=== PATIENT | female | born 1945 | race African-American/Black ===

== ENCOUNTER 2021-05-07 16:28 | Inpatient (IN) | payer MEDICARE, BC ==
[~2021-05-07 16:28] MED LIST: Iopamidol-370 76% 500 ML 1 ML ONE
[2021-05-07 17:47] LABS: #Eosinphils 0.2 thou/uL (0.0-0.7); #Lymphocytes 1.9 thou/uL (1.20-3.40); #Monocytes 0.5 thou/uL (0.11-0.59); #Neutrophils 6.7 thou/uL (1.40-6.50); %Eosinophils 2.4 % (0.0-10.0); %Lymphocytes 20.5 % (21.0-51.0); %Monocytes 5.1 % (0.0-10.0); Hemoglobin 13.8 g/dL (12.0-16.0); Mean Corpuscular HGB CONC 31.3 g/dL (32.0-36.0); Mean Corpuscular Hemoglobin 25.6 pg (27.0-31.0); Mean Corpuscular Volume 81.6 fL (78.0-98.0); Mean Platelet Volume 7.9 fL (7.4-10.4); Platelet Count 241 thou/uL (130-400); RBC Distribution Width 13.3 % (11.5-14.5); Red Blood Cell (RBC) Count 5.39 mill/uL (4.20-5.40); White Blood Cell (WBC) Count 9.3 thou/uL (4.8-10.8)
[2021-05-07] MEDS ORDERED: Labetalol HCl 100 MG/20 ML VIAL ONE (18:03)
[2021-05-07 18:06] LABS: ALT (SGPT) 12 U/L (8-55); AST (SGOT) 14 U/L (5-34); Albumin 3.4 g/dL (3.4-4.8); Alkaline Phosphatase 107 U/L (40-110); Anion Gap 12 mmol/L (10-20); BUN (Urea Nitrogen) 14 mg/dL (9.8-20.1); Bilirubin, Total 0.6 mg/dL (0.2-1.2); Calc. Creatinine Clearance 0 mL/min (70-130); Calcium 10.2 mg/dL (7.8-10.44); Carbon Dioxide 32 mmol/L (23-31); Chloride 101 mmol/L (98-107); Globulin 2.8 g/dL (2.4-3.5); Glucose 84 mg/dL (83-110); Protein, Total 6.2 g/dL (5.8-8.1); Sodium 142 mmol/L (136-145)
[2021-05-07 18:20] LABS: Bacteria/HPF None Seen HPF (None Seen); Bilirubin Negative (Negative); Blood, Urine Negative (Negative); Clarity Clear (Clear); Glucose, Urine (Dipstick) Normal (Negative); Ketone, Urine Negative (Negative); Leukocyte 25 Leu/uL (Negative); Nitrite Negative (Negative); Protein, Urine (Dipstick) 50 mg/dL (Neg-Trace); RBC/HPF 0-3 HPF (0-3); Specific Gravity, Urine 1.025 (1.002-1.036); Squamous Epithelial 0-3 HPF (0-3); Urobilinogen 3 mg/dL (Less than 2); WBC/HPF 0-3 HPF (0-3)
[2021-05-07] MEDS ORDERED: Potassium Chloride 20 MEQ TAB ONE (19:03)
[2021-05-07] MEDS ORDERED: Lisinopril 20 MG TAB PO SCH (19:15)
[2021-05-07] MEDS ORDERED: Labetalol HCl 100 MG/20 ML VIAL SLOW IVP PRN ×2 (19:37→19:54)
[2021-05-07] MEDS ORDERED: Aspirin 81 mg Enteric Coated Tablet PO SCH (19:45)
[2021-05-07] MEDS ORDERED: Potassium Chloride 20 MEQ TAB PO SCH ×2 (19:45→20:00)
[2021-05-07] MEDS: Atorvastatin Calcium 40 MG TAB PO SCH (22:47)
[2021-05-07 22:50] LABS: Free T4 (Free Thyroxine) 1.45 ng/dL (0.70-1.48); Thyroid Stimulating Hormone 0.4195 uIU/mL (0.35-4.94)
[2021-05-08 00:57] VITALS: BMI 41.0
[2021-05-08 06:28] LABS: Anion Gap 12 mmol/L (10-20); BUN (Urea Nitrogen) 11 mg/dL (9.8-20.1); Calc. Creatinine Clearance 100 mL/min (70-130); Calcium 9.4 mg/dL (7.8-10.44); Carbon Dioxide 30 mmol/L (23-31); Chloride 99 mmol/L (98-107); Glucose 146 mg/dL (83-110); Sodium 138 mmol/L (136-145)
[2021-05-08] MEDS: Levothyroxine Sodium 25 MCG TAB PO SCH (06:43)
[2021-05-08] MEDS: Levothyroxine Sodium 112 MCG TAB PO SCH (06:43)
[2021-05-08] MEDS ORDERED: Dextrose 5% in Water 1,000 ML IV PRN (07:00)
[2021-05-08] MEDS ORDERED: Potassium Chloride 20 MEQ TAB PO SCH (07:00)
[2021-05-08] MEDS ORDERED: Dextrose 50% Abboject 50 ML SYRINGE IVP PRN (07:00)
[2021-05-08] MEDS: Aspirin 81 mg Enteric Coated Tablet PO SCH (08:11)
[2021-05-08] MEDS: Furosemide 20 MG TAB PO SCH (08:12)
[2021-05-08] MEDS: Enoxaparin Sodium 40 MG/0.4 ML SYRINGE SC SCH (08:18)
[2021-05-08] MEDS ORDERED: Lisinopril 10 MG TAB PO SCH ×2 (09:00→11:45)
[2021-05-08] MEDS ORDERED: Lisinopril 20 MG TAB PO SCH ×2 (09:00→15:15)
[2021-05-08] MEDS ORDERED: Non-Formulary Item 1 EACH (Levothyroxine Sodium [Levothyroxine Sodium] 137 MCG Tablet) PO SCH (09:00)
[2021-05-08] MEDS ORDERED: Senokot 8.6 MG TAB PO PRN (10:59)
[2021-05-08] MEDS ORDERED: Albuterol Sulfate 2.5 mg/0.5 ml Neb NEB PRN (11:04)
[2021-05-08 12:34] LABS: SARS-CoV-2 PCR by NAA Not Detected (NotDetected)
[2021-05-08] MEDS ORDERED: hydrALAZINE 20 MG/ML VIAL SLOW IVP SCH (15:15)
[2021-05-08] MEDS: Gabapentin 100 MG CAP PO SCH ×2 (15:20→21:15)
[2021-05-08] MEDS: Atorvastatin Calcium 40 MG TAB PO SCH (21:14)
[2021-05-08] MEDS: Atenolol 50 MG TAB PO SCH (21:14)
[2021-05-08] MEDS: Perphenazine 2 MG TAB PO SCH (21:16)
[2021-05-08] MEDS: Latanoprost 0.005% Ophth Soln 2.5 ml Bottle EA EYE SCH (21:16)
[2021-05-08] MEDS: NPH, Human Insulin Isophane 300 UNIT/3 ML VIAL SQ SCH (21:25)
[2021-05-09] MEDS: hydrALAZINE 20 MG/ML VIAL SLOW IVP PRN ×2 (04:34→16:22)
[2021-05-09] MEDS: Levothyroxine Sodium 112 MCG TAB PO SCH (06:32)
[2021-05-09] MEDS: Levothyroxine Sodium 25 MCG TAB PO SCH (06:33)
[2021-05-09 06:37] LABS: #Eosinphils 0.2 thou/uL (0.0-0.7); #Lymphocytes 1.6 thou/uL (1.20-3.40); #Monocytes 0.4 thou/uL (0.11-0.59); #Neutrophils 4.3 thou/uL (1.40-6.50); %Basophils 0.1 % (0.0-1.0); %Eosinophils 2.8 % (0.0-10.0); %Lymphocytes 24.2 % (21.0-51.0); %Monocytes 6.7 % (0.0-10.0); %Neutrophils 66.2 % (42.0-75.0); Hemoglobin 13.8 g/dL (12.0-16.0); Mean Corpuscular HGB CONC 31.6 g/dL (32.0-36.0); Mean Corpuscular Hemoglobin 25.7 pg (27.0-31.0); Mean Corpuscular Volume 81.3 fL (78.0-98.0); Platelet Count 245 thou/uL (130-400); RBC Distribution Width 13.4 % (11.5-14.5); Red Blood Cell (RBC) Count 5.38 mill/uL (4.20-5.40); White Blood Cell (WBC) Count 6.6 thou/uL (4.8-10.8)
[2021-05-09] MEDS ORDERED: Labetalol 100 MG TAB PO ONE (06:48)
[2021-05-09] MEDS ORDERED: Labetalol HCl 100 MG/20 ML VIAL SLOW IVP SCH (06:56)
[2021-05-09 06:57] LABS: Anion Gap 10 mmol/L (10-20); BUN (Urea Nitrogen) 9 mg/dL (9.8-20.1); Calc. Creatinine Clearance 110 mL/min (70-130); Calcium 9.6 mg/dL (7.8-10.44); Carbon Dioxide 32 mmol/L (23-31); Chloride 106 mmol/L (98-107); Glucose 166 mg/dL (83-110); Potassium 3.6 mmol/L (3.5-5.1); Sodium 144 mmol/L (136-145)
[2021-05-09] MEDS: Atenolol 50 MG TAB PO SCH ×2 (08:44→21:31)
[2021-05-09] MEDS: Aspirin 81 mg Enteric Coated Tablet PO SCH (08:44)
[2021-05-09] MEDS: Atorvastatin Calcium 10 MG TAB PO SCH (08:44)
[2021-05-09] MEDS: Lisinopril 20 MG TAB PO SCH (08:45)
[2021-05-09] MEDS: Gabapentin 100 MG CAP PO SCH ×3 (08:45→21:31)
[2021-05-09] MEDS: Furosemide 20 MG TAB PO SCH (08:45)
[2021-05-09] MEDS: Enoxaparin Sodium 40 MG/0.4 ML SYRINGE SC SCH (08:45)
[2021-05-09] MEDS: NPH, Human Insulin Isophane 300 UNIT/3 ML VIAL SQ SCH ×2 (08:46→21:31)
[2021-05-09] MEDS: Potassium Chloride 10 MEQ TAB PO SCH (08:47)
[2021-05-09] MEDS: HumaLOG 300 UNITS/3 ML VIAL SC PRN ×2 (08:47→12:01)
[2021-05-09] MEDS ORDERED: Lisinopril 20 MG TAB PO SCH (09:00)
[2021-05-09] MEDS ORDERED: Amlodipine 5 MG TAB PO SCH (09:45)
[2021-05-09] MEDS: Perphenazine 2 MG TAB PO SCH (21:31)
[2021-05-09] MEDS: Latanoprost 0.005% Ophth Soln 2.5 ml Bottle EA EYE SCH (21:33)
[2021-05-10] MEDS: hydrALAZINE 20 MG/ML VIAL SLOW IVP PRN ×2 (05:11→14:52)
[2021-05-10] MEDS: Levothyroxine Sodium 25 MCG TAB PO SCH (05:11)
[2021-05-10] MEDS: Levothyroxine Sodium 112 MCG TAB PO SCH (05:11)
[2021-05-10 05:58] LABS: Anion Gap 13 mmol/L (10-20); BUN (Urea Nitrogen) 11 mg/dL (9.8-20.1); Calc. Creatinine Clearance 104 mL/min (70-130); Calcium 9.3 mg/dL (7.8-10.44); Carbon Dioxide 29 mmol/L (23-31); Chloride 103 mmol/L (98-107); Glucose 105 mg/dL (83-110); Potassium 3.7 mmol/L (3.5-5.1); Sodium 141 mmol/L (136-145)
[2021-05-10] MEDS: Enoxaparin Sodium 40 MG/0.4 ML SYRINGE SC SCH (08:21)
[2021-05-10] MEDS: Atorvastatin Calcium 10 MG TAB PO SCH (08:21)
[2021-05-10] MEDS: Gabapentin 100 MG CAP PO SCH ×3 (08:21→20:48)
[2021-05-10] MEDS: Furosemide 20 MG TAB PO SCH (08:21)
[2021-05-10] MEDS: Aspirin 81 mg Enteric Coated Tablet PO SCH (08:21)
[2021-05-10] MEDS: Atenolol 50 MG TAB PO SCH (08:21)
[2021-05-10] MEDS: Lisinopril 20 MG TAB PO SCH (08:22)
[2021-05-10] MEDS: Potassium Chloride 10 MEQ TAB PO SCH (08:22)
[2021-05-10] MEDS ORDERED: Amlodipine 5 MG TAB PO SCH (09:00)
[2021-05-10] MEDS: NPH, Human Insulin Isophane 300 UNIT/3 ML VIAL SQ SCH ×2 (10:14→20:52)
[2021-05-10] MEDS ORDERED: Atenolol 50 MG TAB PO SCH (18:15)
[2021-05-10] MEDS ORDERED: NIFEdipine XL 30 MG TAB PO SCH ×2 (18:30→21:00)
[2021-05-10] MEDS: Perphenazine 2 MG TAB PO SCH (20:51)
[2021-05-10] MEDS: Latanoprost 0.005% Ophth Soln 2.5 ml Bottle EA EYE SCH (20:52)
[2021-05-10] MEDS ORDERED: Melatonin 3 MG TAB PO SCH (21:00)
[2021-05-11] MEDS ORDERED: Acetaminophen 325 MG TAB PO PRN (05:06)
[2021-05-11] MEDS: Levothyroxine Sodium 25 MCG TAB PO SCH (05:16)
[2021-05-11] MEDS: Levothyroxine Sodium 112 MCG TAB PO SCH (05:16)
[2021-05-11] MEDS: Aspirin 81 mg Enteric Coated Tablet PO SCH (08:57)
[2021-05-11] MEDS: Atorvastatin Calcium 10 MG TAB PO SCH (08:58)
[2021-05-11] MEDS: Enoxaparin Sodium 40 MG/0.4 ML SYRINGE SC SCH (08:59)
[2021-05-11] MEDS ORDERED: Lisinopril 20 MG TAB PO SCH (09:00)
[2021-05-11] MEDS ORDERED: Atenolol 50 MG TAB PO SCH (09:00)
[2021-05-11] MEDS: Furosemide 20 MG TAB PO SCH (09:00)
[2021-05-11] MEDS: Gabapentin 100 MG CAP PO SCH (09:01)
[2021-05-11 09:03] LABS: Anion Gap 11 mmol/L (10-20); BUN (Urea Nitrogen) 13 mg/dL (9.8-20.1); Calc. Creatinine Clearance 109 mL/min (70-130); Calcium 9.2 mg/dL (7.8-10.44); Carbon Dioxide 32 mmol/L (23-31); Chloride 105 mmol/L (98-107); Glucose 87 mg/dL (83-110); Potassium 3.8 mmol/L (3.5-5.1); Sodium 144 mmol/L (136-145)
[2021-05-11] MEDS: NPH, Human Insulin Isophane 300 UNIT/3 ML VIAL SQ SCH ×2 (09:05→09:07)
[2021-05-11] MEDS: Potassium Chloride 10 MEQ TAB PO SCH (09:05)
[2021-05-11 12:07] VITALS: BP 201/89; TEMP 97.9
[2021-05-11] MEDS ORDERED: NIFEdipine XL 30 MG TAB PO SCH (21:00)
== END 2021-05-11 12:52 | disposition home health service (06) | DRG 78 ==
LOC: ERS 16:28 → NEURO 18:41 → OBSVTOIN 05-08 13:04
PROVIDERS: ADMIT Family Medicine; ATTEND Family Medicine
DX: I67.4 Hypertensive encephalopathy (principal); I16.1 Hypertensive emergency; F41.1 Generalized anxiety disorder; F32.9 Major depressive disorder, single episode, unspecified; F90.9 Attention-deficit hyperactivity disorder, unspecified type; E87.6 Hypokalemia; E89.0 Postprocedural hypothyroidism; E78.5 Hyperlipidemia, unspecified; F41.9 Anxiety disorder, unspecified; R35.0 Frequency of micturition; I10 Essential (primary) hypertension; R33.9 Retention of urine, unspecified; E11.649 Type 2 diabetes mellitus with hypoglycemia without coma; Z88.8 Allergy status to other drugs, medicaments and biological substances; Z85.3 Personal history of malignant neoplasm of breast; Z85.850 Personal history of malignant neoplasm of thyroid; Z90.49 Acquired absence of other specified parts of digestive tract; Z80.3 Family history of malignant neoplasm of breast; Z80.0 Family history of malignant neoplasm of digestive organs; Z79.899 Other long term (current) drug therapy; Z79.4 Long term (current) use of insulin; Z79.890 Hormone replacement therapy
CPT/HCPCS: 36415; 36416; 51701; 70450; 70496; 70498; 70551; 80048; 80053; 81003; 81015; 84439; 84443; 84484; 85025; 87086; 90471; 90732; 93005; 94640; 95712; 95816; 95819; 95957; 96372; 96374; G0009; G0378; J0360; J1650; J1815; Q0175; Q9967; U0003; U0005

== ENCOUNTER 2021-12-20 08:59 | Outpatient (CLI) | payer MEDICARE, BC ==
[2021-12-20] MEDS ORDERED: Iopamidol 370 76% 100 ML VIAL ONE (09:36)
== END 2021-12-20 09:00 | disposition home or self-care (01) ==
LOC: CT 08:59
PROVIDERS: ATTEND Physician Assistant
DX: I77.1 Stricture of artery (principal); D17.1 Benign lipomatous neoplasm of skin and subcutaneous tissue of trunk; E27.8 Other specified disorders of adrenal gland; I70.208 Unspecified atherosclerosis of native arteries of extremities, other extremity; I67.2 Cerebral atherosclerosis; R91.1 Solitary pulmonary nodule
CPT/HCPCS: 71275; Q9967

== ENCOUNTER 2022-07-27 07:05 | Inpatient (IN) | payer MEDICARE, BC ==
[2022-07-27 09:14] VITALS: BMI 41.8
[2022-07-27] MEDS ORDERED: Ondansetron ODT 4 MG TAB PO PRN (09:40)
[2022-07-27] MEDS ORDERED: Ondansetron PF 4 MG/2 ML Vial IVP PRN (09:40)
[2022-07-27 10:43] LABS: #Eosinphils 0.1 thou/uL (0.0-0.7); #Lymphocytes 0.8 thou/uL (1.20-3.40); #Monocytes 0.4 thou/uL (0.11-0.59); #Neutrophils 3.1 thou/uL (1.40-6.50); %Basophils 0.2 % (0.0-1.0); %Eosinophils 1.3 % (0.0-10.0); %Lymphocytes 18.3 % (21.0-51.0); %Monocytes 8.3 % (0.0-10.0); Hemoglobin 14.7 g/dL (12.0-16.0); Mean Corpuscular HGB CONC 30.7 g/dL (32.0-36.0); Mean Corpuscular Hemoglobin 25.2 pg (27.0-31.0); Mean Corpuscular Volume 82.1 fl (78.0-98.0); Mean Platelet Volume 8.1 fL (7.4-10.4); Platelet Count 231 10x3/uL (130-400); RBC Distribution Width 14.4 % (11.5-14.5); Red Blood Cell (RBC) Count 5.84 mill/uL (4.20-5.40); White Blood Cell (WBC) Count 4.4 10x3/uL (4.8-10.8)
[2022-07-27 11:05] LABS: Troponin I 0.025 ng/mL (< 0.028)
[2022-07-27 11:08] LABS: ALT (SGPT) 1531 U/L (8-55); AST (SGOT) 2517 U/L (5-34); Albumin 3.9 g/dL (3.4-4.8); Alkaline Phosphatase 262 U/L (40-110); Anion Gap 15 mmol/L (10-20); BUN (Urea Nitrogen) 16 mg/dL (9.8-20.1); Bilirubin, Total 2.1 mg/dL (0.2-1.2); Calc. Creatinine Clearance 105 mL/min (70-130); Calcium 9.9 mg/dL (7.8-10.44); Carbon Dioxide 29 mmol/L (23-31); Chloride 101 mmol/L (98-107); Estimated GFR 73; Globulin 3.1 g/dL (2.4-3.5); Glucose 92 mg/dL (83-110); Potassium 3.6 mmol/L (3.5-5.1); Sodium 141 mmol/L (136-145)
[2022-07-27 11:15] LABS: Hemoglobin A1c 4.8 % (4.0-6.0)
[2022-07-27] MEDS ORDERED: Ipratropium/Albuterol 3 ML NEB NEB PRN (12:47)
[2022-07-27] MEDS ORDERED: Calcium Carbonate 500 MG ChewTAB PO PRN (12:55)
[2022-07-27 13:14] LABS: Troponin I 0.026 ng/mL (< 0.028)
[2022-07-27] MEDS ORDERED: Morphine 4 MG/ML VIAL SLOW IVP SCH (13:15)
[2022-07-27] MEDS ORDERED: hydrALAZINE 20 MG/ML VIAL SLOW IVP SCH (13:15)
[2022-07-27 13:51] LABS: Acetaminophen Less than 10.0 mcg/mL (10.0-30.0); Alcohol Less than 10 mg/dL (Less than 10); Salicylate Less than 8.0 mg/dL (15.0-30.0)
[2022-07-27 14:11] LABS: Free T4 (Free Thyroxine) 0.83 ng/dL (0.70-1.48)
[2022-07-27] MEDS: Gabapentin 100 MG CAP PO SCH ×2 (15:15→21:07)
[2022-07-27] MEDS: hydrALAZINE 25 MG TAB PO SCH ×2 (15:15→22:42)
[2022-07-27] MEDS ORDERED: Dextrose 5% in Water 1,000 ML IV PRN (15:23)
[2022-07-27] MEDS ORDERED: Dextrose 50% Abboject 50 ML SYRINGE SLOW IVP PRN (15:23)
[2022-07-27] MEDS ORDERED: HumaLOG 300 UNITS/3 ML VIAL SC PRN ×2 (15:23)
[2022-07-27 15:40] LABS: Amphetamine Not Detected (NotDetected); Barbiturates Screen Not Detected (NotDetected); Benzodiazepine Screen Not Detected (NotDetected); Cocaine Metabolite Screen Not Detected (NotDetected); Methadone Not Detected (NotDetected); Methamphetamine Not Detected (NotDetected); Opiate Screen Not Detected (NotDetected); Oxycodone Screen Not Detected (NotDetected); Phencyclidine (PCP) Not Detected (NotDetected); THC/Cannabinoid Screen Not Detected (NotDetected); Tricyclic Screen Not Detected (NotDetected)
[2022-07-27] MEDS ORDERED: Morphine 4 MG/ML VIAL SLOW IVP PRN (16:31)
[2022-07-27] MEDS ORDERED: Lactated Ringer's 1,000 ML IV SCH (19:15)
[2022-07-27] MEDS ORDERED: Insulin NPH Human Isophane 100 UNIT/ML (10 ML VIAL) SQ SCH (21:00)
[2022-07-27] MEDS: Atenolol 50 MG TAB PO SCH (21:07)
[2022-07-27] MEDS: Latanoprost 0.005% Ophth Soln 2.5 ml Bottle EA EYE SCH (21:15)
[2022-07-28] MEDS: Levothyroxine 150 MCG TAB PO SCH (05:39)
[2022-07-28 05:51] LABS: #Basophils 0.1 thou/uL (0.0-0.2); #Eosinphils 0.1 thou/uL (0.0-0.7); #Lymphocytes 1.3 thou/uL (1.20-3.40); #Monocytes 0.5 thou/uL (0.11-0.59); #Neutrophils 4.5 thou/uL (1.40-6.50); %Basophils 0.8 % (0.0-1.0); %Eosinophils 1.8 % (0.0-10.0); %Lymphocytes 19.7 % (21.0-51.0); %Monocytes 7.4 % (0.0-10.0); %Neutrophils 70.3 % (42.0-75.0); Hemoglobin 12.6 g/dL (12.0-16.0); Mean Corpuscular Hemoglobin 26.7 pg (27.0-31.0); Mean Corpuscular Volume 83.5 fl (78.0-98.0); Mean Platelet Volume 8.4 fL (7.4-10.4); Platelet Count 220 10x3/uL (130-400); RBC Distribution Width 14.4 % (11.5-14.5); White Blood Cell (WBC) Count 6.5 10x3/uL (4.8-10.8)
[2022-07-28 05:59] LABS: Prothrombin Time 13.8 sec (12.0-14.7)
[2022-07-28 06:19] LABS: ALT (SGPT) 940 U/L (8-55); AST (SGOT) 826 U/L (5-34); Albumin 3.2 g/dL (3.4-4.8); Alkaline Phosphatase 254 U/L (40-110); Anion Gap 13 mmol/L (10-20); BUN (Urea Nitrogen) 23 mg/dL (9.8-20.1); Bilirubin, Total 3.1 mg/dL (0.2-1.2); Calc. Creatinine Clearance 50 mL/min (70-130); Carbon Dioxide 28 mmol/L (23-31); Chloride 99 mmol/L (98-107); Estimated GFR 30; Globulin 2.8 g/dL (2.4-3.5); Glucose 90 mg/dL (83-110); Iron 70 ug/dL (50-170); Iron Binding Capacity, Total 219 mcg/dL (265-497); Potassium 3.6 mmol/L (3.5-5.1); Sodium 136 mmol/L (136-145)
[2022-07-28 06:30] LABS: Ferritin 237.51 ng/mL (10-291)
[2022-07-28 06:57] LABS: HBCM Index 0.09 S/CO (0-0.79); HBSAg Index 0.25 S/CO (0-0.99); Hep A IgM AB Non-Reactive (NonReactive); Hep A IgM S/CO 0.24 S/CO (0-0.79); Hep B Surf Ag Non-Reactive S/CO (NonReactive); Hep C IgG Ab Non-Reactive (NonReactive); Hepatitis B Core IgM Abs Non-Reactive (NonReactive)
[2022-07-28] MEDS ORDERED: Lactated Ringer's 1,000 ML IV SCH (08:00)
[2022-07-28 08:10] LABS: Creatinine, Urine 219.12 mg/dL (47-110)
[2022-07-28] MEDS ORDERED: Insulin NPH Human Isophane 100 UNIT/ML (10 ML VIAL) SQ SCH (09:00)
[2022-07-28] MEDS ORDERED: Alogliptin 25 MG TAB PO SCH (09:00)
[2022-07-28] MEDS: Atenolol 50 MG TAB PO SCH ×2 (09:03→21:32)
[2022-07-28] MEDS: Pantoprazole 40 MG VIAL IVP SCH (09:03)
[2022-07-28] MEDS: Cholecalciferol 1,000 UNITS (25 MCG) TAB PO SCH (09:03)
[2022-07-28] MEDS: Aspirin 81 mg Enteric Coated Tablet PO SCH (09:03)
[2022-07-28] MEDS: Gabapentin 100 MG CAP PO SCH ×3 (09:03→21:33)
[2022-07-28] MEDS: hydrALAZINE 25 MG TAB PO SCH ×3 (09:04→21:33)
[2022-07-28] MEDS: Escitalopram Oxalate 10 mg Tablet PO SCH (09:04)
[2022-07-28] MEDS: Lisinopril 20 MG TAB PO SCH (09:05)
[2022-07-28] MEDS: Potassium Chloride 10 MEQ TAB PO SCH (09:06)
[2022-07-28] MEDS: Amlodipine 5 MG TAB PO SCH (09:06)
[2022-07-28] MEDS: Fish Oil 1,000 MG CAP PO SCH (09:06)
[2022-07-28] MEDS: Hydrochlorothiazide 25 MG TAB PO SCH (09:06)
[2022-07-28] MEDS: Latanoprost 0.005% Ophth Soln 2.5 ml Bottle EA EYE SCH (21:34)
[2022-07-29 05:32] LABS: #Lymphocytes 0.8 thou/uL (1.20-3.40); #Monocytes 0.4 thou/uL (0.11-0.59); #Neutrophils 5.2 thou/uL (1.40-6.50); %Basophils 0.4 % (0.0-1.0); %Eosinophils 0.4 % (0.0-10.0); %Lymphocytes 12.6 % (21.0-51.0); %Monocytes 6.4 % (0.0-10.0); %Neutrophils 80.1 % (42.0-75.0); Hemoglobin 11.8 g/dL (12.0-16.0); Mean Corpuscular HGB CONC 31.1 g/dL (32.0-36.0); Mean Corpuscular Hemoglobin 25.6 pg (27.0-31.0); Mean Corpuscular Volume 82.3 fl (78.0-98.0); Mean Platelet Volume 8.4 fL (7.4-10.4); Platelet Count 201 10x3/uL (130-400); RBC Distribution Width 14.3 % (11.5-14.5); Red Blood Cell (RBC) Count 4.63 mill/uL (4.20-5.40); White Blood Cell (WBC) Count 6.4 10x3/uL (4.8-10.8)
[2022-07-29] MEDS: Levothyroxine 150 MCG TAB PO SCH (05:49)
[2022-07-29 05:53] LABS: ALT (SGPT) 580 U/L (8-55); AST (SGOT) 310 U/L (5-34); Albumin 3.2 g/dL (3.4-4.8); Alkaline Phosphatase 225 U/L (40-110); Anion Gap 12 mmol/L (10-20); BUN (Urea Nitrogen) 23 mg/dL (9.8-20.1); Bilirubin, Total 1.5 mg/dL (0.2-1.2); Calc. Creatinine Clearance 73 mL/min (70-130); Carbon Dioxide 30 mmol/L (23-31); Chloride 97 mmol/L (98-107); Estimated GFR 48; Globulin 2.9 g/dL (2.4-3.5); Glucose 188 mg/dL (83-110); Potassium 3.5 mmol/L (3.5-5.1); Protein, Total 6.1 g/dL (5.8-8.1); Sodium 135 mmol/L (136-145)
[2022-07-29] MEDS: Amlodipine 5 MG TAB PO SCH (08:09)
[2022-07-29] MEDS: Aspirin 81 mg Enteric Coated Tablet PO SCH (08:12)
[2022-07-29] MEDS: Pantoprazole 40 MG VIAL IVP SCH (08:12)
[2022-07-29] MEDS: Fish Oil 1,000 MG CAP PO SCH (08:12)
[2022-07-29] MEDS: Atenolol 50 MG TAB PO SCH ×2 (08:12→20:06)
[2022-07-29] MEDS: Cholecalciferol 1,000 UNITS (25 MCG) TAB PO SCH (08:12)
[2022-07-29] MEDS: Gabapentin 100 MG CAP PO SCH ×3 (08:12→20:06)
[2022-07-29] MEDS: Escitalopram Oxalate 10 mg Tablet PO SCH (08:12)
[2022-07-29] MEDS: Lisinopril 20 MG TAB PO SCH (08:13)
[2022-07-29] MEDS: Hydrochlorothiazide 25 MG TAB PO SCH (08:13)
[2022-07-29] MEDS: hydrALAZINE 25 MG TAB PO SCH ×3 (08:13→20:07)
[2022-07-29] MEDS: Potassium Chloride 10 MEQ TAB PO SCH (08:14)
[2022-07-29] MEDS ORDERED: Lactated Ringer's 500 ML IV SCH (11:00)
[2022-07-29] MEDS ORDERED: Amlodipine 5 MG TAB PO SCH ×2 (11:28→19:15)
[2022-07-29] MEDS: HumaLOG 300 UNITS/3 ML VIAL SC PRN ×2 (13:42→17:14)
[2022-07-29 18:16] LABS: ANA Symphony (Qualitative) Negative (Negative); ANA Symphony (Quantitative) 0.6 Ratio (< 0.7 Negative); EliA Vaculitis New Method **** NEW METHOD ****; Mitochondrial Ab 3.1 U/mL (<4 Negative); dsDNA IgG Antibody 3.5 IU/mL (<10 Negative)
[2022-07-29] MEDS: hydrALAZINE 20 MG/ML VIAL SLOW IVP PRN (18:33)
[2022-07-29] MEDS: Latanoprost 0.005% Ophth Soln 2.5 ml Bottle EA EYE SCH (20:06)
[2022-07-29] MEDS: OLOPATADINE HCL EA NARE SCH (20:06)
[2022-07-30] MEDS: Levothyroxine 150 MCG TAB PO SCH (04:26)
[2022-07-30] MEDS: hydrALAZINE 20 MG/ML VIAL SLOW IVP PRN (04:27)
[2022-07-30 04:38] VITALS: TEMP 98
[2022-07-30 05:51] LABS: #Eosinphils 0.1 thou/uL (0.0-0.7); #Lymphocytes 1.2 thou/uL (1.20-3.40); #Monocytes 0.7 thou/uL (0.11-0.59); %Basophils 0.5 % (0.0-1.0); %Eosinophils 0.9 % (0.0-10.0); %Lymphocytes 15.1 % (21.0-51.0); %Monocytes 8.2 % (0.0-10.0); %Neutrophils 75.3 % (42.0-75.0); Hemoglobin 12.9 g/dL (12.0-16.0); Mean Corpuscular HGB CONC 31.4 g/dL (32.0-36.0); Mean Corpuscular Volume 82.6 fl (78.0-98.0); Mean Platelet Volume 8.4 fL (7.4-10.4); Platelet Count 219 10x3/uL (130-400); RBC Distribution Width 14.5 % (11.5-14.5); Red Blood Cell (RBC) Count 4.97 mill/uL (4.20-5.40); White Blood Cell (WBC) Count 7.9 10x3/uL (4.8-10.8)
[2022-07-30 06:20] LABS: ALT (SGPT) 415 U/L (8-55); AST (SGOT) 121 U/L (5-34); Alkaline Phosphatase 196 U/L (40-110); Anion Gap 11 mmol/L (10-20); BUN (Urea Nitrogen) 20 mg/dL (9.8-20.1); Bilirubin, Total 0.7 mg/dL (0.2-1.2); Calc. Creatinine Clearance 90 mL/min (70-130); Calcium 9.6 mg/dL (7.8-10.44); Carbon Dioxide 31 mmol/L (23-31); Chloride 99 mmol/L (98-107); Estimated GFR 61; Globulin 3.1 g/dL (2.4-3.5); Glucose 154 mg/dL (83-110); Potassium 3.3 mmol/L (3.5-5.1); Protein, Total 6.1 g/dL (5.8-8.1); Sodium 138 mmol/L (136-145)
[2022-07-30] MEDS ORDERED: Potassium Chloride 20 MEQ TAB PO SCH (07:45)
[2022-07-30] MEDS: Fish Oil 1,000 MG CAP PO SCH (08:42)
[2022-07-30] MEDS: Lisinopril 20 MG TAB PO SCH (08:42)
[2022-07-30] MEDS: hydrALAZINE 25 MG TAB PO SCH (08:42)
[2022-07-30] MEDS: Aspirin 81 mg Enteric Coated Tablet PO SCH (08:42)
[2022-07-30] MEDS: Atenolol 50 MG TAB PO SCH (08:43)
[2022-07-30] MEDS: Hydrochlorothiazide 25 MG TAB PO SCH (08:43)
[2022-07-30] MEDS: Potassium Chloride 10 MEQ TAB PO SCH (08:43)
[2022-07-30] MEDS: Escitalopram Oxalate 10 mg Tablet PO SCH (08:44)
[2022-07-30] MEDS: Gabapentin 100 MG CAP PO SCH (08:44)
[2022-07-30] MEDS: Cholecalciferol 1,000 UNITS (25 MCG) TAB PO SCH (08:44)
[2022-07-30 08:45] LABS: Magnesium 1.9 mg/dL (1.6-2.6); Phosphorus 1.9 mg/dL (2.3-4.7)
[2022-07-30] MEDS: Pantoprazole 40 MG VIAL IVP SCH (08:45)
[2022-07-30] MEDS: OLOPATADINE HCL EA NARE SCH (09:34)
[2022-07-30 11:30] VITALS: BP 180/79
[2022-07-30] MEDS: HumaLOG 300 UNITS/3 ML VIAL SC PRN (12:42)
[2022-08-02 16:14] LABS: Metanephrine,Plasma 44.2 pg/mL (0.0-88.0); Normetanephrine,Pl 135.7 pg/mL (0.0-285.2)
== END 2022-07-30 14:00 | disposition home or self-care (01) | DRG 445 ==
LOC: 2SW 09:12 → OBSVTOIN 14:15
PROVIDERS: ADMIT Family Medicine; ATTEND Family Medicine
DX: K83.1 Obstruction of bile duct (principal); E74.01 von Gierke disease; N17.9 Acute kidney failure, unspecified; E03.9 Hypothyroidism, unspecified; K83.8 Other specified diseases of biliary tract; F32.9 Major depressive disorder, single episode, unspecified; F41.1 Generalized anxiety disorder; F90.9 Attention-deficit hyperactivity disorder, unspecified type; K42.9 Umbilical hernia without obstruction or gangrene; E86.0 Dehydration; K57.30 Diverticulosis of large intestine without perforation or abscess without bleeding; D17.9 Benign lipomatous neoplasm, unspecified; E87.6 Hypokalemia; Z20.822 Contact with and (suspected) exposure to COVID-19; Z79.51 Long term (current) use of inhaled steroids; Z79.4 Long term (current) use of insulin; Z79.82 Long term (current) use of aspirin; Z79.899 Other long term (current) drug therapy; Z88.8 Allergy status to other drugs, medicaments and biological substances; Z85.3 Personal history of malignant neoplasm of breast; Z98.890 Other specified postprocedural states; Z90.49 Acquired absence of other specified parts of digestive tract; R07.89 Other chest pain; D17.1 Benign lipomatous neoplasm of skin and subcutaneous tissue of trunk; E78.5 Hyperlipidemia, unspecified; I11.0 Hypertensive heart disease with heart failure; I50.9 Heart failure, unspecified
CPT/HCPCS: 36415; 36416; 71045; 74177; 74181; 76705; 80053; 80074; 80306; 80307; 82103; 82384; 82390; 82570; 82627; 82728; 83036; 83516; 83540; 83550; 83690; 83735; 83835; 83880; 84100; 84244; 84300; 84439; 84443; 84481; 84484; 85025; 85610; 86015; 86038; 86225; 87040; 87077; 87086; 87186; 93005; 94760; 96374; 96375; C9113; G0378; J0360; J1650; J1815; J2270; J2405; J7120; Q0162; U0003; U0005